=== PATIENT | female | born 1945 | race Caucasian/White ===

== ENCOUNTER → 2018-02-11 | Outpatient (CLI) | payer OTHER, BC ==
[~2018-02-11] VITALS: Ht 165.1 cm; Wt 54.4 kg
[~2018-02-11] MED LIST: CALCIUM 500 +1 EAC5 PO; CENTRUM SILVER1 EAC4 PO; DIAZEPAM2 MG PO; ESCITALOPRAM OXA5 MG PO; FOLIC ACID1 MG PO; HALCION0.125 MG PO; MAXZIDE-25 MG1 EACH PO; POTASSIUM99 MG PO; TYLENOL325 MG PO
== END | disposition home or self-care (01) ==
LOC: GI 07:55
DX: R12 Heartburn (principal); K21.9 Gastro-esophageal reflux disease without esophagitis; Z79.899 Other long term (current) drug therapy; Z98.890 Other specified postprocedural states; Z90.49 Acquired absence of other specified parts of digestive tract; Z90.710 Acquired absence of both cervix and uterus; F32.9 Major depressive disorder, single episode, unspecified
CPT/HCPCS: 62110; 62900

== ENCOUNTER → 2018-09-02 | Outpatient (CLI) | payer OTHER, BC ==
[~2018-09-02] VITALS: Ht 165.1 cm; Wt 54.4 kg
[~2018-09-02] MED LIST changes: +CRESTOR20 MG PO; +OMEPRAZOLE40 MG PO; +POTASSIUM CITR15 MEQ PO; +PRAMIPEXOLE D0.25 MG PO; +SERTRALINE HCL100 MG PO; +VITAMIN B-12500 MCG PO; +ZOLOFT50 MG PO
--- NOTE | 2018-09-04 10:07 | PATH ---
[facility] [place] [address] PATHOLOGY RPT PROCEDURE Name: ETELVINA CAICEDO Room #: REG [facility] M.R.#: [id number] Admission: 09/02/18 Date of : 43 Discharge: Report #: [id number] Path Case #: [id number] [facility] Accession Number: [id number] . 01 Material submitted: . PART A: colon - RANDOM RIGHT COLON BIOPSY R/O MICROSCOPIC COLITIS. Modifiers: right PART B: colon - RANDOM LEFT COLON BIOPSY R/O MICROSCROPIC COLITIS. Modifiers: left PART C: rectum - RECTAL POLYPS X3 . 01 Clinical history: . Pre-OP DX: Weight loss Post-OP DX: Random BX, polyps Rule out microscopic colitis . 02 Diagnosis: A. Large intestine mucosa, random right colon, rule out microscopic colitis, endoscopic biopsy: - Scattered rare foci of mild acute cryptitis. - Negative for features of microscopic colitis. - Negative for dysplasia or malignancy. . B. Large intestine, random left colon, rule out microscopic colitis, endoscopic biopsy: - Non-specific reactive hyperplastic changes with macrophages within lamina propria. - Negative for microscopic colitis. - Negative for dysplasia or malignancy. . C. Polyp x 3, rectal polyp, endoscopic biopsy: - Hyperplastic polyps. - Negative for dysplasia. LBQ/09/03/2018 . 02 Comment: Examination of the "random right colon" shows a rare focus of acute cryptitis along with apoptotic bodies. The lamina propria cellularity is comprised of lymphocytes, plasma cells and eosinophils. On the other hand, the "random left colon" shows hyperplastic changes as well as pigmented macrophages. Overall, there is no crypt abscess formation, ulceration, as well as granulomata present. There are no architectural abnormalities as well. Findings may be non-specific, and may be due to bowel preparation, a resolved episode of colitis, or a self-limited episode of colitis. Please correlate clinically. (IUV/db; 09/03/2018) . [address] [address] PATHOLOGY RPT PROCEDURE Name: ETELVINA CAICEDO [id number] Admission: 09/02/18 Date of : 43 Discharge: Report #: [id number] Path Case #: [id number] Electronically signed: . Britany Morales MD, Pathologist NPI- [id number] . 01 Gross description: . A. Received in formalin labeled "Etelvina Caicedo, random right colon BX," are 5 segments of foote soft tissue measuring 1.5 x 1.1 x 0.3 cm in aggregate dimensions and ranging from 0.2 to 0.5 cm in maximum dimension. The specimen is submitted entirely in cassette A1. . B. Received in formalin labeled "Etelvina Caicedo, random left colon BX," are 5 segments of foote soft tissue measuring 1.4 x 0.6 x 0.3 cm in aggregate dimensions and ranging from 0.3 to 0.5 cm in maximum dimension. The specimen is submitted entirely in cassette B1. . C. Received in formalin labeled "Etelvina Caiecdo, rectal polyps x3," are 3 segments of foote soft tissue measuring 0.6 x 0.5 x 0.1 cm in aggregate dimensions and ranging from 0.2 to 0.3 cm in maximum dimension. The specimen is submitted entirely in cassette C1. (TSD; 09/02/2018) TOB/TOB . 02 Pathologist provided ICD-10: K62.89, K62.1 . 02 CPT . 524219, [id number], [id number] Specimen Comment: A courtesy copy of this report has been sent to Specimen Comment: [phone], . Specimen Comment: Report sent to / DR BRAXTON Specimen Comment: A duplicate report has been generated due to demographic updates. Performed at: [address], [place] [id number] MD Hank Lopez MD Phone: [phone] Performed at: [address] [id number] MD Britany Morales MD Phone: [phone]
== END | disposition home or self-care (01) ==
LOC: GI 07:53 → RAD 10:27 → GI 14:03
DX: K62.1 Rectal polyp (principal); K62.89 Other specified diseases of anus and rectum; K64.8 Other hemorrhoids; E78.00 Pure hypercholesterolemia, unspecified; F32.9 Major depressive disorder, single episode, unspecified; Z90.49 Acquired absence of other specified parts of digestive tract; Z98.890 Other specified postprocedural states; Z90.710 Acquired absence of both cervix and uterus; Z79.899 Other long term (current) drug therapy
CPT/HCPCS: 62110; 62900